=== PATIENT | male | born 1935 | race Caucasian/White ===

== ENCOUNTER 2024-04-01 13:55 | Day surgery (SDC) | payer MEDICARE, OTHER ==
[~2024-04-01] VITALS: Ht 172.7 cm; Wt 65.8 kg
[2024-04-01] VITALS (10 sets, daily range): BP systolic 99–120; BP diastolic 44–60; PULSE 77–84; RESP 10–12; TEMP 98.2; O2SAT 95–100
[2024-04-01] MEDS ORDERED: nitroGLYCERIN 0.4mg SUBLingual tab SL PRN (14:25)
[2024-04-01] MEDS ORDERED: LUSP25VI (14:32)
[2024-04-01] MEDS ORDERED: OMEP20CA16 PO (14:32)
[2024-04-01] MEDS: diphenhydrAMINE 25mg capsule PO PRN (14:37)
[2024-04-01] MEDS: LORazepam 0.5 MG tablet PO PRN (14:37)
[2024-04-01] MEDS: normal saline 1,000 ML IV SCH (14:38)
[2024-04-01] MEDS ORDERED: midazolam 1 mg/ML 2ml injection ONE (14:39)
[2024-04-01] MEDS ORDERED: LIDOcaine 1% 30ml preserv. free vial ONE (14:39)
[2024-04-01] MEDS ORDERED: fentaNYL/PF 50MCG/1 ML 2ML syringe ONE (14:39)
[2024-04-01] MEDS ORDERED: iohexol 350 MG/ML 50ML vial IV ONE (14:40)
[2024-04-01] MEDS ORDERED: iohexol 350MG/ML 100ml bottle IV ONE (14:40)
[2024-04-01 14:45] LABS: BASOPHILS # (AUTO) 0.1 X10'3 (0-0.2); WHITE BLOOD COUNT 10.4 X10'3 (4.5-11.0)
[2024-04-01 14:47] LABS: BASOPHILS % (AUTO) 1.1 % (0-1); EOSINOPHILS # (AUTO) 0.2 X10'3 (0-0.9); EOSINOPHILS % (AUTO) 1.6 % (0-6); HEMATOCRIT 32.2 % (42.0-52.0); HEMOGLOBIN 10.3 g/dl (14.0-17.9); LYMPHOCYTES # (AUTO) 1.6 X10'3 (1.1-4.8); LYMPHOCYTES % (AUTO) 15.3 % (21-51); MEAN CORPUSCULAR HEMOGLOBIN 33.8 PG (27.0-31.0); MEAN CORPUSCULAR HGB CONC 31.9 g/dL (33.0-36.5); MEAN PLATELET VOLUME 11.2 FL (7.4-10.4); MONOCYTES # (AUTO) 0.6 X10'3 (0-0.9); MONOCYTES % (AUTO) 5.5 % (2-12); NEUTROPHILS # (AUTO) 7.9 X10'3 (1.8-7.7); NEUTROPHILS % (AUTO) 76.5 % (42-75); PLATELET COUNT 250 X10'3 (140-440); RED BLOOD COUNT 3.04 X10'6 (4.70-6.10)
[2024-04-01 15:01] LABS: ALBUMIN 5.1 G/DL (3.4-5.0); ANION GAP 12 (8-16); BLOOD UREA NITROGEN 20 MG/DL (7-18); BUN/CREATININE RATIO 19.6 (10.0-20.0); CALCIUM 9.3 MG/DL (8.5-10.1); CHLORIDE 106 MMOL/L (99-107); CREATININE 1.02 MG/DL (0.60-1.10); GLUCOSE 94 MG/DL (70-104); POTASSIUM 4.6 MMOL/L (3.5-5.1); SODIUM 143 MMOL/L (135-145); TOTAL CARBON DIOXIDE 25.5 MMOL/L (24-32); eCRCL 47 ML/MIN; eGFR 69 ML/MIN
[2024-04-01 15:04] LABS: APTT 22 SECONDS (22-32); PROTHROMBIN TIME 10.7 SECONDS (9.0-12.0)
[2024-04-01 15:11] LABS: ANISOCYTOSIS 3+; GIANT PLATELET FEW; HYPOCHROMASIA 1+; LARGE PLATELETS FEW; PLATELET ESTIMATE NORMAL; TARGET CELLS FEW; TOTAL CELLS COUNTED 100
[2024-04-01 15:12] LABS: BURR CELLS 1+; ELLIPTOCYTES FEW; POLYCHROMASIA FEW
[2024-04-01 15:13] LABS: ACANTHOCYTES FEW
[2024-04-01] MEDS ORDERED: ondansetron/PF 4mg/2ml inj IV PRN (16:05)
[2024-04-01] MEDS ORDERED: proCHLORperazine 10 MG/2 ml inj IV PRN (16:05)
[2024-04-01] MEDS ORDERED: HYDROcodone/acetaminophen 5mg/325mg tablet PO PRN (16:05)
[2024-04-01] MEDS ORDERED: HYDROcodone/acetaminophen 10/325mg tab PO PRN (16:05)
[2024-04-01] MEDS ORDERED: OXAZEpam 15mg capsule PO PRN (16:05)
== END 2024-04-01 19:55 | disposition home or self-care (01) ==
LOC: SSTAY O 13:55
PROVIDERS: ATTEND Internal Medicine Cardiovascular Disease
DX: R94.39 Abnormal result of other cardiovascular function study (principal); I25.119 Atherosclerotic heart disease of native coronary artery with unspecified angina pectoris; J44.9 Chronic obstructive pulmonary disease, unspecified
CPT/HCPCS: 36415; 71046; 80048; 85025; 85610; 85730; 93005; 93458; 99152; A6258; C1760; C1769; J1644; J2001; J2250; J3010; J7030; Q0163; Q9967; Z7610; 85007; 99153; J3490